=== PATIENT | female | born 1980 | race Caucasian/White ===

== ENCOUNTER 2018-08-14 11:27 | Emergency (ER) | payer MEDICAID, SELFPAY ==
--- NOTE | 2018-08-14 11:37 | NUR.NOTE ---
pt states that at approximately 0800 she slipped getting out of the shower landing on her ri8gh shoulder and believes it is dislocated 10/10 pain
[2018-08-14 11:39] VITALS: BP 122/68; PULSE 69; RESP 17; TEMP 37.8; O2SAT 99
--- NOTE | 2018-08-14 11:48 | DI.RAD_ITS ---
SYMPTOM/DIAGNOSIS: FELL, PAIN, DEFORMITY RIGHT CLAVICLE AND RIGHT SHOULDER: Two views of the clavicle and four views of the shoulder were obtained. There is a mid clavicular fracture with moderate overriding of the fracture fragments. No additional fracture or dislocation is seen.
--- NOTE | 2018-08-14 11:50 | W.ED.GENAD ---
Discharge Plan Disposition Patient Disposition: HOME Condition: Stable Discharge Details Chief Complaint: Orthopedic Clinical Impression: Closed right clavicular fracture Primary Care Provider: Jericho Mcmillan ED Provider: Lu Samayoa Home Meds and New Rx's Prescriptions: New oxycodone 5 mg capsule 5 mg PO Q6H PRN (Reason: pain) Qty: 9 RF: 0 Discharge Instructions Instructions: Oxycodone, Rapid Release (By mouth), Clavicle Fracture (ED) Additional Instructions: Encourage rest, ice, elevation. Tylenol and/or ibuprofen as needed for discomfort. You may augment this with oxycodone as prescribed. Please only take this medication as prescribed. Keep this in a safe place away from children. Do not drive will take this medication. Please keep sling on until evaluated by orthopedics. Please call orthopedics tomorrow to schedule follow-up appointment. If you develop new or worsening symptoms please seek care urgently once again. Stand Alone Forms: Work Release Referrals: Jericho Mcmillan [Primary Care Provider] - Waqas Lyons MD [ [facility] STAFF PHYSICIAN] - Discharge Data Discharge Date/Time-TO BE ENTERED AT DEPARTURE: 08/14/18 14:01 Medical Decision Making Patient is a 38-year-old RHD female presents today with chief complaint of right shoulder pain. She reports that approximately 4 hours prior to arrival she slipped in the shower and fell landing directly on the right shoulder. She denies any other injuries from the incident. Did not strike her head, no loss conscious. Denies any neck or back pain. No chest pain or shortness of breath. Patient is indicating the clavicle and anterior shoulder is area of maximal discomfort. She does have swelling a palpable deformity midshaft clavicle. Neurovascularly intact. Exam is otherwise unremarkable. Patient reports that she just finished her menses. Plan to obtain imaging and treat patient's pain. Will give Tylenol, ibuprofen and oxycodone. Discussed this plan with the patient was in agreement. Patient has a band noted mid shaft clavicular fracture on x-ray. Discussed these findings with the patient. She is En been fitted with a sling. Encourage rest, ice, elevation. Tylenol and/or ibuprofen as needed for discomfort. Will prescribe a short course of oxycodone to help with her acute discomfort. We discussed the risks associated with this medication safe usage. She knows not to drive on this medication. She will be referred to orthopedics, she will call them tomorrow to schedule an appointment. All of her questions and concerns were addressed and she is in agreement this plan. She will seek urgent care once again with any new or worsening symptoms. She is aware of activities to avoid. Patient works as a academic department chair, work note was given for her to return once cleared by orthopedics. HPI General Mode of arrival: ambulatory. Date/Time Provider Initiated Documentation: 08/14/18 11:41. Limitations to Documentation: no limitations. Information obtained by: RN notes reviewed. History of Present Illness 38 year old F presents to the emergency department with the chief complaint of right shoulder pain, described as severe, with intensity rated at 10. Quality is described as stabbing, and is localized to the right and upper extremity. Patient reports no radiation. Patient started experiencing this hour(s) (0830) and it has been constant. Immobilization improves symptom(s), Movement worsens symptoms . Patient notes no other symptoms.. Patient did receive the following treatments prior to arrival, none Related Data Home Medications Medication Instructions Recorded Confirmed oxycodone 5 mg PO Q6H PRN #9 cap 08/14/18 Previous Rx's Medication Instructions Recorded oxycodone 5 mg PO Q6H PRN #9 cap 08/14/18 Allergies Allergy/AdvReac Type Severity Reaction Status Date / Time codeine AdvReac Mild Nausea Unverified 08/14/18 11:41 General Stated Complaint: Orthopedic FÉLIX: 3 Review of Systems Constitutional Reports as per HPI, Denies chills, Denies fever(s), Denies headache(s) and Denies weakness ENT Denies headache(s) and Denies neck pain Cardiovascular Reports as per HPI Respiratory Reports as per HPI and Denies cough Musculoskeletal Reports as per HPI, Reports limited range of motion, Denies muscle weakness, Denies neck pain, Denies numbness and Denies tingling Integumentary/Breasts Reports as per HPI, Denies rash and Denies wounds Neurologic Reports as per HPI, Denies headache(s), Denies numbness, Denies tingling, Denies paresthesias and Denies weakness [facility] Social History Smoking/Tobacco Use Status: Former Tobacco Use Alcohol Intake: current Alcohol Intake frequency: holidays/special occasions only Drug use: Never Substance use type: does not use Do you feel safe at home: Yes Do you feel safe in your relationship?: Yes Exam Const General: cooperative, healthy appearing, comfortable, well developed, well groomed and anxious (appears anxious and uncomfortable) Nutritional Appearance: average body habitus and well nourished Orientation: alert and awake Neck Neck: normal visual inspection, full ROM, no meningeal signs and trachea midline Chest Chest: normal inspection of the chest, normal palpation of entire chest wall and no localized rib tenderness Resp Effort & Inspection: normal respiratory effort, able to speak in complete sentences and no respiratory distress Auscultation: clear to auscultation bilaterally Cardio Rate: regular rate Rhythm: regular rhythm Heart Sounds: S1 normal and S2 normal Skin General skin exam: no rashes or lesions noted (no tenting of the skin) Lesions: no lesions Rashes: no rashes Trauma: no lacerations or abrasions Neuro General: alert and awake Cognition: normal cognition Speech: speech normal Gait: normal gait Motor: muscle tone normal throughout Sensory Exam: no sensory deficits noted Extrem Right upper extremity: normal capillary refill, no joint enlargement, shoulder/upper arm Details: tenderness, swelling, axillary nerve sensory function normal and deformity Location: of the clavicle (no tenting of the skin) Location: mid-shaft; ROM limited, no abrasions, no lacerations, no ecchymosis, no crepitus and no penetrating wound, elbow/forearm Details: normal to inspection, normal ROM and distal pulses intact; no tenderness and no swelling, wrist Details: normal to inspection, normal ROM and normal vascular exam; no tenderness, no swelling, no unusual warmth and no abrasions and hand Details: normal to inspection, normal capillary refill, neuromotor exam normal and neurosensory exam normal; abnormal to inspection (swelling and palpable deformity midshaft clavicle) and ROM limited (unable to range shoulder, full ROM elbow, wrist, hand) Psych Appearance: grossly normal and well kempt Mental Status: mental status grossly normal Speech and Movement: speech and movement normal Course Vital Signs Temperature 37.8 C H 08/14/18 11:39 Pulse 69 08/14/18 11:39 Respiratory Rate 17 08/14/18 11:39 Blood Pressure 122/68 08/14/18 11:39 Pulse Oximetry 99 08/14/18 11:39 Temperature 37.8 C H 08/14/18 11:39 Temperature Source Skin 08/14/18 11:39 Pulse 69 08/14/18 11:39 Respiratory Rate 17 08/14/18 11:39 Respiratory Effort 08/14/18 11:43 Blood Pressure 122/68 08/14/18 11:39 Blood Pressure Position Sitting 08/14/18 11:39 Pulse Oximetry 99 08/14/18 11:39 Oxygen Delivery Method Room Air 08/14/18 11:39 Oxygen Flow Rate 0 08/14/18 11:39 Pain Level 8 08/14/18 11:39
[2018-08-14] MEDS: Acetaminophen 325 MG TAB 650 MG PO (12:01)
[2018-08-14] MEDS: Ibuprofen 600 MG TAB PO (12:01)
[2018-08-14] MEDS: oxyCODONE 5 MG TAB PO (12:01)
[2018-08-14 14:00] VITALS: BP 122/68; PULSE 69; RESP 17; TEMP 37.5; O2SAT 99
--- NOTE | 2018-08-14 14:02 | DI.VRAD_ITS ---
EXAM: XR Right Shoulder, Complete, 2 or More Views EXAM DATE/TIME: 08/14/2018 11:50 AM CLINICAL HISTORY: 38 years old, female; Signs and symptoms; Other: , Fall, deformity TECHNIQUE: Imaging protocol: XR Right shoulder, complete 2 or more views. COMPARISON: No relevant prior studies available. FINDINGS: Mid right clavicular fracture with just over one shaft width of inferior displacement and approximately 2 cm of shortening. Acromioclavicular and coracoclavicular ligaments appear intact. No other acute fractures. IMPRESSION: Mid right clavicular fracture as outlined above. Dictated and Authenticated by: Earl Rasmussen MD. Ordering:PAULA Leigh MD
--- NOTE | 2018-08-14 14:02 | DI.VRAD_ITS ---
EXAM: XR Right Clavicle, Complete EXAM DATE/TIME: 08/14/2018 11:50 AM CLINICAL HISTORY: 38 years old, female; Signs and symptoms; Patient HX: Fall, deformity ap included on shoulder TECHNIQUE: Imaging protocol: XR Right clavicle complete. Any number of views. COMPARISON: No relevant prior studies available. FINDINGS: Mid right clavicular fracture with just over one shaft width of inferior displacement and approximately 2 cm of shortening. Acromioclavicular and coracoclavicular ligaments appear intact. No other acute fractures. IMPRESSION: Mid right clavicular fracture as outlined above. Dictated and Authenticated by: Earl Rasmussen MD. Ordering:PAULA Leigh MD
--- NOTE | 2018-08-14 14:02 | NUR.NOTE ---
sling applied at 1300
== END 2018-08-14 14:01 | disposition home or self-care (01) ==
PROVIDERS: Emergency Provider Physician Assistant; PCP Internal Medicine
DX: S42.021A Displaced fracture of shaft of right clavicle, initial encounter for closed fracture (principal); W18.2XXA Fall in (into) shower or empty bathtub, initial encounter
CPT/HCPCS: 23500; 73000; 73030; L3650

== ENCOUNTER 2018-08-22 14:19 | Outpatient (CLI) | payer MEDICAID, SELFPAY ==
--- NOTE | 2018-08-22 14:13 | DI.RAD_ITS ---
SYMPTOM/DIAGNOSIS: F/U FX RIGHT CLAVICLE: Comparison is made with 08/14/18. There has been no change in the alignment of the clavicle fracture.
== END 2018-08-22 14:39 ==
PROVIDERS: PCP Internal Medicine; Visit Provider Physician Assistant
DX: S42.021D Displaced fracture of shaft of right clavicle, subsequent encounter for fracture with routine healing (principal)
CPT/HCPCS: 73000

== ENCOUNTER 2018-08-26 10:59 | Day surgery (SDC) | payer MEDICAID, SELFPAY ==
[2018-08-26] VITALS (11 sets, daily range): BP systolic 114–141; BP diastolic 55–89; PULSE 48–86; RESP 14–23; TEMP 35.6–37.3; O2SAT 91–99
[2018-08-26] MEDS: Lactated Ringers 1,000 ML 80 ML IV ×2 (12:19→15:26)
[2018-08-26] MEDS: ceFAZolin 2 GM/50 ML BAG IVPB (12:38)
[2018-08-26] MEDS: Bupivacaine 0.5% Pres-Free 30 ML VIAL (13:43)
--- NOTE | 2018-08-26 13:45 | DI.RAD_ITS ---
SYMPTOMS/DIAGNOSIS: FRACTURED RIGHT CLAVICLE C-ARM FLUOROSCOPY OF THE RIGHT CLAVICLE: Fluoroscopy Time: 12.1 sec, 0.78 mGy Fluoroscopy was provided in the OR for Dr. Lyons. Hard copy images show placement of a screw and plate fixation across the clavicle for fracture fixation. The alignment is now anatomic. Please see procedure note for details.
--- NOTE | 2018-08-26 14:13 | W.PM.DSUDISC ---
Discharge Plan Disposition Patient Disposition: HOME Condition: Good Discharge Details Reason For Visit: R Clavicle Fracture Attending Provider: Waqas Lyons Primary Care Provider: Jericho Mcmillan Home Meds and New Rx's Prescriptions: New acetaminophen 500 mg tablet 1,000 mg PO Q8H PRN (Reason: pain) Qty: 60 RF: 3 ibuprofen 600 mg tablet 600 mg PO TID PRNQty: 60 RF: 3 oxycodone 5 mg tablet 5 mg PO Q4H Qty: 12 RF: 0 Discontinued acetaminophen [Tylenol Extra Strength] 500 mg Tablet 500 mg PO Q6H PRNRF: 0 ibuprofen 200 mg Tablet 200 mg PO QID PRNRF: 0 Discharge Instructions Additional Instructions: Activity: You may move your hand and fingers as tolerated. You should otherwise stay in the sling at all times except for hygiene and gentle pendulum motions. If you are resting in a chair, you may remove the sling and allow the arm to rest in your lap or on pillows. You also may find sleeping easier in a reclined position. Dressing: Keep the surgical dressing in place for at least one week. After the first week it may be removed and replace with light gauze and tape or nothing. It may get wet after 3 days but avoid soaking the dressing. If it gets wet, just lightly pat dry. Medications: - You should take Tylenol and an anti-inflammatory Ibuprofen as your primary pain control medications - You have been prescribed a stronger pain medication Oxycodone for breakthrough pain, take as needed as prescribed. - If you have constipation you should take Colace or Miralax (both [id number]). It takes most people 3-4 days to have a bowel movement. Follow-up: 2 weeks Referrals: Waqas Lyons MD [ [facility] STAFF PHYSICIAN] - Equipment/Supplies: Sling Activity:: Stay in sling except for hygiene Remove Dressings/Wound Care:: 72 hours Discharge Orders Discharge Orders: Discharge Order (Routine); Ordered 08/26/18 Ordered By: Waqas Lyons DS: Diagnosis Discharge Diagnosis (1) Closed right clavicular fracture: Status: Acute
[2018-08-26] MEDS: HYDROmorphone 2 MG/ML VIAL IVP ×4 (14:15→14:55)
[2018-08-26] MEDS: fentaNYL 100 MCG/2 ML VIAL IVP ×2 (14:37→15:01)
--- NOTE | 2018-08-26 14:59 | DI.RAD_ITS ---
SYMPTOMS/DIAGNOSIS: S/P RIGHT CLAVICLE OPEN REDUCTION AND INTERNAL FIXATION, ? PNEUMOTHORAX PORTABLE CHEST: There are no prior comparison chest x-rays. There is no evidence of pneumothorax, infiltrate or effusion. The heart size is normal. A fixation plate is noted along the distal right clavicle. IMPRESSION: No evidence of pneumothorax or other acute abnormality.
--- NOTE | 2018-08-26 15:35 | ROE_ITS ---
DATE OF SURGERY: August 26, 2018 PREOPERATIVE DIAGNOSIS: Right midshaft clavicle fracture. POSTOPERATIVE DIAGNOSIS: Same. SURGERY: Open reduction and internal fixation of right clavicle fracture. SURGEON: Waqas Lyons M.D. COMPENSATION ANALYST: Chriss Dimas PA-C ANESTHESIA: General. ESTIMATED BLOOD LOSS: 50 cc's FINDINGS: There was a shortened and displaced midshaft clavicle fracture. It was able to be reduced and held in place with clamps and secured with a 6-hole plate. There was a minor amount of comminut ion at the fracture site and a small amount of demineralized bone matrix was applied to encourage bon y union. COMPLICATIONS: None. DISPOSITION: The patient was awakened from anesthesia and taken to the PACU in a stable condition. INDICATION FOR PROCEDURE: Ileana is a 38-year-old, right hand dominant female who had a fall, suf fering a midshaft clavicle fracture of the right shoulder. She does use her hands for her occupation and was concerned about her function given the clavicle fracture on the right side. X-rays showed t hat it was displaced greater than 100% and shortened. Therefore, I did offer operative fixation. I reviewed the risks of the procedure to include bleeding, infection, pain, stiffness, hardware failure , hardware complications, hardware prominence, malunion, nonunion, need for repeat procedures, damage to nerves and vessels, including numbness over the anterior chest, pneumothorax. Despite these risk s, she elected to proceed. PROCEDURE DESCRIPTION: Ileana is a 38-year-old who was greeted in the preoperative holding area. Her identity was confirmed and the correct side was identified and marked. The consent was reviewed with the patient and signed. The history and physical was updated. She was taken back to the [facility] Room and placed in the supine position. A general anesthetic was administered. She was then po sitioned into the beach chair position. Within this position, all bony prominences were well-padded. Her head was secured in neutral position with a well-padded head of merchandise buying. It was insured that we funes d plenty of clearance for appropriate x-rays during the case. The right shoulder area was then prepp ed with ChloraPrep and draped in a standard fashion. Prophylactic antibiotics in the form of Cefazol in were given. A time-out was performed for safe surgery. The fracture site was easily palpable and confirmed with x-ray. A 10 cm incision was then centralize d over the fracture site. The skin was incised sharply. Once the platisma was identified and the cl avicle was identified underneath it, the skin was moved slightly anteriorly and a full-thickness cut was made through the platisma and the deeper layer down to the clavicle. The fracture site was ident ified. A Flores elevator was used to elevate off the tissues from the superior clavicle. Anterior soft tissue attachments were left in place as much as possible. The fracture had an oblique orientation to it, running from posterior medial to anterior lateral. There was no significant comminution excep t for the very most anterolateral aspect of the fracture of the medial fragment, which had some commi nution. Using two lobster claws I was able to get a general reduction performed. There was again so me gapping of the bone over the very anterior aspect of the fracture. Once this was adequately reduc ed, a K-Wire was placed across the fracture site to help with fracture maintenance. A six-hole clavi nicholas plate was placed onto the clavicle. However, this clavicle fracture was slightly more lateral th an a traditional midshaft fracture and therefore the right side did not seem to fit it appropriately. However, the left clavicle plate did fit appropriately with the curve of the clavicle. Therefore a six-hole left clavicle plate was used for the right clavicle fracture. It was placed overlying the fracture. It was clamped into place and held with a K-Wire. X-ray once again confirmed that we were appropriately reduced and I checked both medial and lateral extents of the plate to make sure it was on bone. A single non-locking screw was then placed on the medial fragment. Once this was secured, the plate was once again repositioned to make sure it had excellent coverage over the bone with no p rominence or overhang of the plate. Medially a non-locking cortical screw was placed in eccentric fa shion to apply some compression to the fracture site. A second non-locking cortical screw was again placed in the same way on the forward lateral aspect of the plate. This did provide some compression through the fracture site. The remainder of the holes were then filled with non-locking cortical sc rews. All screws had excellent purchase. It was ensured that no plunging occurred to prevent all th e vital structures deep to the clavicle. A final x-ray was confirmed to show the plate resting on th e clavicle and without any far penetration of the screws under the inferior cortex of the clavicle. There was some comminution and some gaping of that far anterior aspect of the fracture site, so there fore I used some demineralized bone matrix to fill that void. The wound was then thoroughly irrigate d. The deep tissues were injected with a mixture of 20 cc's of 0.5% Bupivacaine and 20 cc's of Expar el. The clavipectoral fascia and muscular attachments to the clavicle were closed over the clavicle and the plate with a #0 Vicryl. This completely enclosed the plate and covered it completely. The p latisma was then closed in a separate layer with a running #3-0 Vicryl. The skin was closed with a #3-0 Vicryl followed by a #4-0 Monocryl and skin glue. A Me pilex dressing was applied. She was placed in a sling. At the end of the case all counts were corre ct. She was awakened from anesthesia and taken to the PACU in a stable condition.
[2018-08-26] MEDS: oxyCODONE 5 MG TAB PO (16:28)
== END 2018-08-26 18:00 | disposition home or self-care (01) ==
PROVIDERS: PCP Internal Medicine; Visit Provider Student in an Organized Health Care Education/Training Program
PROC: (CPT 23515; principal; 2018-08-26 12:00)
DX: S42.021A Displaced fracture of shaft of right clavicle, initial encounter for closed fracture (principal); W18.2XXA Fall in (into) shower or empty bathtub, initial encounter; Y92.012 Bathroom of single-family (private) house as the place of occurrence of the external cause
CPT/HCPCS: 23515; C1713; 76000; 71045; 73000; J0690; J1885; J2250; J2405; J3010; L3650

== ENCOUNTER 2018-09-21 14:50 | Outpatient (CLI) | payer MEDICAID, SELFPAY ==
--- NOTE | 2018-09-21 14:43 | DI.RAD_ITS ---
SYMPTOMS/DIAGNOSIS: FIRST POSTOP RIGHT CLAVICLE: Two views. Comparison is 08/26/18. There has been no change in alignment of the sideplate and screws transfixing the fracture of the right clavicle. The fracture appears anatomic in alignment.
== END 2018-09-21 15:10 ==
PROVIDERS: PCP Internal Medicine; Visit Provider Student in an Organized Health Care Education/Training Program
DX: S42.021D Displaced fracture of shaft of right clavicle, subsequent encounter for fracture with routine healing (principal)
CPT/HCPCS: 73000

== ENCOUNTER 2018-10-24 09:51 | Outpatient (CLI) | payer MEDICAID, SELFPAY ==
--- NOTE | 2018-10-24 09:24 | DI.RAD_ITS ---
SYMPTOMS/DIAGNOSIS: F/U RT CLAVICLE ORIF RIGHT CLAVICLE: Single view. Comparison 09/21/18. There is again seen a sideplate and screws transfixing the right clavicular fracture. There has been no change in alignment of the fracture components or the orthopedic hardware since the prior examination.
== END 2018-10-24 10:11 ==
PROVIDERS: PCP Internal Medicine; Visit Provider Student in an Organized Health Care Education/Training Program
DX: S42.021D Displaced fracture of shaft of right clavicle, subsequent encounter for fracture with routine healing (principal)
CPT/HCPCS: 73000

== ENCOUNTER 2018-12-05 09:11 | Outpatient (CLI) | payer MEDICAID, SELFPAY ==
--- NOTE | 2018-12-05 08:20 | DI.RAD_ITS ---
SYMPTOM/DIAGNOSIS: F/U RT CLAVICLE ORIF RIGHT CLAVICLE Comparison is made with 24 October 2018. Hardware remains in place in mid to distal clavicle. There has been continued healing of the previously noted fracture which is unchanged in alignment.
== END 2018-12-05 09:31 ==
PROVIDERS: PCP Internal Medicine; Visit Provider Student in an Organized Health Care Education/Training Program
DX: S42.021D Displaced fracture of shaft of right clavicle, subsequent encounter for fracture with routine healing (principal)
CPT/HCPCS: 73000

== ENCOUNTER 2019-07-31 13:52 | Outpatient (CLI) | payer MEDICAID, SELFPAY ==
--- NOTE | 2019-07-31 13:45 | DI.RAD_ITS ---
EXAM: XR CLAVICLE RT CLINICAL HISTORY: F/U ORIF TECHNIQUE: 2D digital imaging was performed. COMPARISON: XR CLAVICLE RT from 08/14/2018 XR CLAVICLE RT from 09/21/2018 XR clavicle RT limited 1V from 12/05/2018 FINDINGS: The hardware remains in place along the mid to distal clavicle for fracture fixation. The fracture r emains faintly visible.
== END 2019-07-31 14:12 ==
PROVIDERS: PCP Internal Medicine; Visit Provider Student in an Organized Health Care Education/Training Program
DX: S42.021D Displaced fracture of shaft of right clavicle, subsequent encounter for fracture with routine healing (principal)
CPT/HCPCS: 73000

== ENCOUNTER 2019-08-15 09:33 | Outpatient (CLI) | payer MEDICAID, SELFPAY ==
[2019-08-16 08:03] LABS: COVID-19 RT-PCR UVMMC Result Negative (Negative)
== END 2019-08-15 09:53 ==
PROVIDERS: PCP Internal Medicine; Visit Provider Student in an Organized Health Care Education/Training Program
DX: Z11.59 Encounter for screening for other viral diseases (principal); Z01.818 Encounter for other preprocedural examination
CPT/HCPCS: U0003

== ENCOUNTER 2019-08-18 09:10 | Day surgery (SDC) | payer MEDICAID, SELFPAY ==
[2019-08-18] VITALS (10 sets, daily range): BP systolic 83–105; BP diastolic 24–64; PULSE 44–67; RESP 10–25; TEMP 36.3–37; O2SAT 93–100
[2019-08-18] MEDS: Lactated Ringers 1,000 ML 80 ML IV (10:01)
--- NOTE | 2019-08-18 11:04 | PDOC.DSDIS_ITS ---
Discharge Plan Disposition Patient Disposition: HOME Condition: Good Discharge Details Reason For Visit: PAINFUL (R) CLAVICLE HARDWARE Attending Provider: Waqas Lyons Primary Care Provider: Jericho Mcmillan Home Meds and New Rx's Prescriptions: New hydrocodone-acetaminophen 5-325 mg tablet 1 tab PO Q6H PRN PRN (Reason: pain) Qty: 12 RF: 0 Continued ibuprofen 600 mg tablet 600 mg PO TID PRNQty: 60 RF: 3 Changed acetaminophen 500 mg tablet 500 mg PO Q6H PRN PRN (Reason: pain) Qty: 60 RF: 3 Discontinued Multi For Her 18 mg iron-600 mcg-40 mcg Capsule 1 tab-cap PO DAILY RF: 0 Discharge Instructions Additional Instructions: Activity: You may move your hand and fingers as tolerated. You may move your shoulder and elbow as tolerated. But use the sling for support and comfort. You should start with pendulums and increase activity as tolerated. You may remove the sling and allow the arm to rest in your lap or on pillows. You also may find sleeping easier in a reclined position. Dressing: Keep the surgical dressing in place for at least one week. After the first week it may be removed and replace with light gauze and tape or nothing. It may get wet after 3 days but avoid soaking the dressing. If it gets wet, just lightly pat dry. Medications: - You should take Tylenol and an anti-inflammatory Ibuprofen as your primary pain control medications - You have been prescribed a stronger pain medication Hydrocodone for breakthrough pain, take as needed as prescribed. - If you have constipation you should take Colace or Miralax (both [id number]). It takes most people 3-4 days to have a bowel movement. Follow-up: 2 weeks Referrals: Waqas Lyons MD [ [facility] STAFF PHYSICIAN] - Equipment/Supplies: Sling Activity:: Activity as Tolerated Diet:: As Tolerated Discharge Orders Discharge Orders: Discharge Order (Routine); Ordered 08/18/19 Ordered By: Waqas Lyons DS: Diagnosis Discharge Diagnosis (1) Painful orthopaedic hardware: Status: Acute
[2019-08-18] MEDS: ceFAZolin 2 GM/50 ML BAG IVPB (11:12)
[2019-08-18] MEDS: LORazepam 2 MG/ML VIAL 0.5 MG IVP (13:14)
--- NOTE | 2019-08-18 15:52 | ROE_ITS ---
Date of service: 08/18/19 Time of Service: 12:52 Operative Note Operative Note DATE OF PROCEDURE: 08/18/19 PRE-OP DIAGNOSIS: Painful right clavicle hardware POST-OP DIAGNOSIS: other Right clavicle fracture nonunion PROCEDURE: Removal of hardware from right clavicle, nonunion debridement and bone grafting SURGEON: Waqas Lyons IMPORT EXPORT CLERK: Nargis López ANESTHESIA: GETA ESTIMATED BLOOD LOSS: 5 PATHOLOGY: none sent TOURNIQUET TIME: 0 COMPLICATIONS: None Patient was transported to: PACU Patient's condition: stable Indications: Ana is a 39-year-old who suffered a right clavicle midshaft fracture last summer. This was treated with plate fixation. She had done well and it appeared that it was healing until she presented with new pain about the right shoulder. She had developed significant amounts of hypertrophic bone and a fracture line was not visible with lucency around the screws. At this point, it is determined to remove the plate and hardware. I reviewed the technical features of the case. I also discussed the risk of the procedure to include bleeding, infection, pain, stiffness, dose of there is a vessels cord there is muscle and tendons, pneumothorax, need for repeat procedures, fracture displacement. Despite these risk, she like to proceed. Findings: The majority of the screws were grossly loose within the clavicle. They removed without difficulty. There is abundant bone seen over the medial aspect of the plate which was debrided. The plate was removed and the fracture site had an obvious nonunion. The fracture fragments, while mobile, were stable due to soft tissue attachments. The nonunion site was debrided with a curette and with a rongeur and then packed with local bone as well as allograft cancellus bone. Procedure Description: Ileana was greeted in the preoperative holding area. Her identity was confirmed and the correct site was identified and marked. The consent was reviewed the patient and signed. She was taken to the operating room placed in the supine position. All bony problems well-padded. A bump was placed underneath the right shoulder elevated off the bed. A general anesthetic was administered. The right shoulder was then prepped with ChloraPrep and draped in standard fashion. Prophylactic antibiotics in the form of cefazolin were given. A timeout was performed for safe surgery. The proposed surgical site was then injected with 0.25% ropivacaine with epinephrine. The previous incision was reopened to the skin. Deeper dissection was carried out electrocautery through the platysma. The soft tissue planes were elevated over to the superior aspect of the clavicle and the clavipectoral fascia was incised sharply down to the plate. Using a carter elevator and the Bovie electrocautery, I elevated off the scar and fascia from the plate. There is notable thickening of this fascia as we move medially with large amounts of bone surrounding the plate. The visible screws appear loose. They are easily r emoved. There is no purulence or signs of infection. There is a notable amount of soft tissue around the screws and the fracture site. After all sick screws were removed, the plate was removed without difficulty. The prominence of bone medially was debrided down with a rondure or and smoothed with a rasp. The bone itself appeared to be healthy. The screw sites were debrided with a curette re moving all soft tissue. 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 There is no notable bridging of tissue across the fracture site. There is no necrotic tissue. Using a curette and rongeur debrided all soft tissue interposed between the 2 fracture fragments. I did not debride down any of the posterior anterior tissue as this was suspending the clavicle in an adequate position. I did debride this tissue significantly. While the fracture site was mobile there was no ability to displace the fracture fragments as they were tied in anatomic position with soft tissue constraints. Therefore, based on our discussion preoperatively to avoid repeat plating, I did not treat the nonunion with instrumentation. I used some of the bone removed from the medial aspect the clavicle as well as 5 cc of allograft bone graft to put within the fracture site. The wound was thoroughly irrigated. The clavipectoral fascia was then closed with a #0 Vicryl. The platysma was closed with a running 3-0 Vicryl. Subcutaneous tissue was reapproximated with a 2-0 Vicryl. The skin was closed with a running subcuticular 4-0 Monocryl. Skin was reinforced with skin glue and covered with a Mepilex silver dressing. She was placed in a sling. I then the case all counts are correct.
== END 2019-08-18 14:40 | disposition home or self-care (01) ==
PROVIDERS: PCP Internal Medicine; Visit Provider Student in an Organized Health Care Education/Training Program
PROC: (CPT 11043; principal; 2019-08-18 13:00)
DX: T84.84XA Pain due to internal orthopedic prosthetic devices, implants and grafts, initial encounter (principal); M25.511 Pain in right shoulder; T84.228A Displacement of internal fixation device of other bones, initial encounter; S42.001A Fracture of unspecified part of right clavicle, initial encounter for closed fracture; X58.XXXA Exposure to other specified factors, initial encounter; G89.18 Other acute postprocedural pain
CPT/HCPCS: 11043; 20680; 76942; 81025; J0690; J1100; J1885; J2001; J2060; J2405; J2704; L3650

== ENCOUNTER 2019-09-01 11:43 | Outpatient (CLI) | payer MEDICAID, SELFPAY ==
--- NOTE | 2019-09-01 11:30 | DI.RAD_ITS ---
EXAM: XR CLAVICLE RT CLINICAL HISTORY: hs/p harware rewmoval TECHNIQUE: 2D digital imaging was performed. COMPARISON: CR XR CLAVICLE RT from 07/31/2019 FINDINGS: Since the prior examination, the sideplate and screws have been removed. There is an old right clavi cular fracture deformity. No new fracture or dislocation is identified. IMPRESSION: Old fracture deformity of the right clavicle. DATA REPOSITORY: RADIATION DOSE DELIVERED:
== END 2019-09-01 12:03 ==
PROVIDERS: PCP Internal Medicine; Referring Provider Internal Medicine; Visit Provider Student in an Organized Health Care Education/Training Program
DX: S42.021D Displaced fracture of shaft of right clavicle, subsequent encounter for fracture with routine healing (principal); Z47.89 Encounter for other orthopedic aftercare
CPT/HCPCS: 73000